=== PATIENT | male | born 1950 | race Caucasian/White ===

== ENCOUNTER 2022-10-19 10:17 | Emergency (ER) | payer BC, OTHER ==
[~2022-10-19] VITALS: Ht 167.6 cm; Wt 82.0 kg
[2022-10-19 10:23] VITALS: BP 148/95
[2022-10-19] MEDS ORDERED: ORPH100T2 PO (13:40)
== END 2022-10-19 13:43 | disposition home or self-care (01) ==
LOC: ER 10:17
DX: S13.4XXA Sprain of ligaments of cervical spine, initial encounter (principal); Z88.2 Allergy status to sulfonamides; V89.2XXA Person injured in unspecified motor-vehicle accident, traffic, initial encounter; Y93.89 Activity, other specified; Y92.488 Other paved roadways as the place of occurrence of the external cause; Y99.8 Other external cause status
CPT/HCPCS: 72040; 72125; 99284; L0172

== ENCOUNTER 2025-06-18 20:37 | Emergency (ER) | payer MEDICARE ==
[~2025-06-18] VITALS: Ht 167.6 cm; Wt 70.7 kg
[~2025-06-18 20:37] MED LIST: ORPH100T4 PO
[2025-06-18 20:40] VITALS: BP 167/80; PULSE 97; RESP 15; O2SAT 98
[2025-06-18] MEDS: oxymetazoline 15 ML nasal spray NS ONE (22:58)
--- NOTE | 2025-06-18 23:25 | Physician Documentation ---
History of Present Illness ~ Chief Complaint: Nose bleed Stated Complaint: BLOODY NOSE Time Seen by MD: 21:14 Primary Medical Doctor: AMADEO GRIER CORIN IS A 74-YEAR-OLD MALE WHO PRESENTS TO THE EMERGENCY DEPARTMENT FOR EVALUATION OF EPISTAXIS. THE RIGHT NARES HAS BEEN BLEEDING DESPITE EFFORTS OF DIRECT PRESSURE FOR GREATER THAN AN HOUR. PATIENT DOES TAKE 81 MG OF ASPIRIN A DAY. REPORTS SIMILAR EPISODES APPROXIMATELY SEVEN YEARS AGO. DENIES RECENT ILLNESS INJURY OR OTHER FORMS OF BLEEDING. NO HEMATOCHEZIA, NO GUM BLEEDING AND NO MELENA STOOL. Medication Reconciliation Allergies: Coded Allergies: Sulfa (Sulfonamide Antibiotics) (Verified Allergy, Unknown, 06/18/25) Scheduled PRN Orphenadrine Citrate (Norflex), 1 TAB PO Q12H PRN PRN for muscle spasms Past Medical History Past Medical History: No Pertinent History Past Surgical History: no surgical history Alcohol Use: None Drug Use: none Lives with: Spouse Lives In: Home Review of Systems All Other Systems at this time: Reviewed and Negative ENT: Reports: nose bleeding Physical Exam Vital Signs: Temperature: 96.8, Source: Temporal, Heart Rate: 97, Respiratory Rate: 15, BP: 167/80, Pulse Oximetry: 98, Weight: 70.700 General Appearance: alert, WD/WN, mild distress Eye Lid: normal inspection Pupils/EOM/Fundus: PERRLA Nose: intranasal blood, active bleeding; No: swelling, laceration, intranasal abrasion, intranasal laceration, discharge, septal hematoma, septal deviation Mouth/Throat: normal mouth inspection, other (NO POSTERIOR PHARYNX BLEEDING) Teeth/Gums: normal inspection Face: normal inspection Respiratory: no respiratory distress Cardiovascular: normal peripheral pulses Gastrointestinal: normal palpation Skin: normal color Neurologic: oriented x4 Psychiatric: normal mood/affect Progress Results/Orders Results/Orders Completed Orders - SAY JOHN Oxymetazoline Nasal [place] (Afrin Nasal S (06/18/25 22:35) Silver Nitrate Applicator (Silver Nitrat (06/18/25 22:35) Vital Signs 06/18/25 06/18/25 20:40 23:47 Temp 96.8 96.8 Pulse 97 Resp 15 B/P (MAP) 167/80 Pulse Ox 98 Medical Decision Making Additional Comment 74-YEAR-OLD MALE WITH RIGHT NARES EPISTAXIS REQUIRING MANAGEMENT. INITIAL ED COURSE CONSISTED OF CLEAR IN THE RIGHT NARES, AFRIN SPRAY AND NASAL SPECULUM EXAMINATION. HE HAS EVIDENCE OF ANTERIOR BLEEDING TO THE MID MEDIAL MUCOSA THAT CONTINUED DESPITE THE USE OF TWO SILVER NITRATE STICKS. DISCUSSED THE RISKS ALTERNATIVES BENEFITS OF RHINO ROCKET PLACEMENT FOR PATIENT WHO IS FAMILIAR WITH THE PROCEDURE AND WISHES TO GO AHEAD PROCEED. DIFFICULTY WITH PLACING HIM IN THE ANTERIOR POSTERIOR RHINO ROCKET WHICH IS 7.5 CM SO WENT AHEAD AND ATTEMPTED PLACEMENT OF THE ANTERIOR RHINO ROCKET WHICH IS 5.5 CM. UNABLE TO PASS THROUGH THE NARES. WENT AHEAD AND OBTAINED MEROCEL SPONGE WHICH I WRAPPED WITH SURGICEL AND PLACED IN THE RIGHT NARES. HAD A SPONGE EXPANDED WITH AFRIN. THERE WAS NO FURTHER BLEEDING. NO ANTIBIOTICS PROVIDED AT THIS TIME THIS PATIENT IS VERY RELIABLE TO RETURN TO THE EMERGENCY DEPARTMENT 48 HOURS FOR REMOVAL. HE WILL HOLD HIS ASPIRIN FOR 1-2 DAYS. SAFELY DISCHARGED FROM THE EMERGENCY DEPARTMENT WITHOUT FURTHER EPISTAXIS AND AFTERCARE INSTRUCTIONS PROVIDED. Departure Disposition: HOME / SELF CARE / HOMELESS Impression: Primary Impression: Epistaxis Condition: Improved Discharge Instructions: Nosebleed, Adult Additional Instructions: Tonight in the emergency department you have a sponge and hemostatic gauze p laced in your nares. Please return to the emergency department in two days for recheck. Return sooner if you have breakthrough bleeding that does not resolve with nose clamp. Thank you for visiting emergency department [facility]. Referrals: NO PRIMARY CARE PROVIDER (PCP) Education Educated: Patient Educated regarding: diagnosis, treatment, prognosis Signature Scribe Signature: No scribe Attestation: The note accurately reflects work and decisions made by me.Aram Celestin MD 06/19/25 02:57 SAY JOHN PAC Jun 18, 2025 23:25 ARAM CELESTIN MD Jun 19, 2025 02:57
[2025-06-18 23:47] VITALS: TEMP 96.8
== END 2025-06-18 23:51 | disposition home or self-care (01) ==
LOC: ER 20:38
DX: R04.0 Epistaxis (principal); Z88.2 Allergy status to sulfonamides
CPT/HCPCS: 30901; 99284; A6402; A6449

== ENCOUNTER 2025-06-21 09:31 | Emergency (ER) | payer MEDICARE ==
[~2025-06-21] VITALS: Ht 167.6 cm; Wt 79.3 kg
[2025-06-21 09:46] VITALS: BP 141/75; PULSE 92; RESP 18; TEMP 97.9; O2SAT 97
--- NOTE | 2025-06-21 09:52 | Physician Documentation ---
History of Present Illness ~ Chief Complaint: See Chief Complaint Stated Complaint: RECHECK FOR NOSE BLEED Time Seen by MD: 10:23 Primary Medical Doctor: AMADEO [facility] This is a 74-year-old male who presents requesting that the packing in his right Nare be removed. He was seen here three days ago for this to be placed and told to return at this time. He denies fevers or chills, chest pain or shortness of breath. Denies any other systemic symptoms. Medication Reconciliation Allergies: Coded Allergies: Sulfa (Sulfonamide Antibiotics) (Verified Allergy, Unknown, 06/18/25) Scheduled PRN Orphenadrine Citrate (Norflex), 1 TAB PO Q12H PRN PRN for muscle spasms Past Medical History Past Medical History: No Pertinent History Past Surgical History: no surgical history Alcohol Use: None Drug Use: none Lives with: Spouse Lives In: Home Review of Systems ROS As stated above in the HPI, otherwise all systems are reviewed and negative. Physical Exam Vital Signs: Temperature: 97.9, Source: Oral, Heart Rate: 92, Respiratory Rate: 18, BP: 141/75, Pulse Oximetry: 97, Weight: 79.300 Physical Exam General: Alert, no apparent distress. HEENT: PERRL, EOMI, no injection, moist mucous membranes. Packing in place right nare. Normal exam of posterior pharynx with no new or old blood visualized on exam. After packing removed, small abrasion noted inside left nare. No active bleeding. Neck: Full range of motion. Respiratory: Lungs clear, no respiratory distress. Chest: No accessory muscle use. Cardiovascular: Regular rate and rhythm, no murmurs. Gastrointestinal: Soft, nontender, nondistended. Bowels sounds present. Extremities: Normal range of motion, no deformity. Neurologic: Oriented x4. Psychiatric: Normal mood and affect. Skin: Normal color, warm and dry. No edema, no ecchymosis. Procedures Procedures 1101: Right nasal packing removed easily. No fresh bleeding after removal. Observed x 10 min. Progress Results/Orders Results/Orders Vital Signs 06/21/25 09:46 Temp 97.9 Pulse 92 Resp 18 B/P (MAP) 141/75 Pulse Ox 97 Medical Decision Making Additional Comment This is a 74-year-old male who presents for removal of packing in the right ear after an episode of epistaxis with a packing was placed three days ago. The patient reports that he is on aspirin. He denies chest pain or shortness of breath. He has an appointment with the residential child care counselor in two weeks, at which point he will discuss the ongoing use of aspirin with her. Departure Time of Disposition: 11:03 Disposition: 01 HOME / SELF CARE / HOMELESS Impression: Primary Impression: Epistaxis Additional Impression: Encounter for removal of nasal packing Condition: Stable Discharge Instructions: Nosebleed, Adult Additional Instructions: Packing removed. Cool mist vaporizer or humidifier at bedside. Followup with primary care. Return if worse. Referrals: NO PRIMARY CARE PROVIDER (PCP) Education Educated: Patient, Family Educated regarding: diagnosis, treatment, prognosis, need for follow up Signature Scribe Signature: x Attestation: The note accurately reflects work and decisions made by me.Ant Crane NP 06/21/25 09:51 ANT HARRIS NP Jun 21, 2025 09:51
== END 2025-06-21 11:36 | disposition home or self-care (01) ==
LOC: ER 09:31
DX: R04.0 Epistaxis (principal); Z88.2 Allergy status to sulfonamides
CPT/HCPCS: 99281